=== PATIENT | female | born 1995 | race Caucasian/White ===

== ENCOUNTER 2021-07-06 01:07 | Inpatient (IN) ==
[2021-07-06] MEDS ORDERED: ceFAZolin 1000MG 1,000 MG/7.5 ML SYR IV PRN (01:40)
[2021-07-06] MEDS ORDERED: OXYTOCIN 30 UNITS/500 ML BAG IV PRN ×3 (01:40→14:20)
[2021-07-06] MEDS ORDERED: ceFAZolin 2000MG 2,000 MG/15 ML SYR IV STA (01:56)
[2021-07-06] MEDS: LACTATED RINGER'S 1,000 ML IV PRN ×3 (02:05→10:38)
[2021-07-06] MEDS ORDERED: SODIUM CHLORIDE 0.9% INJ 10 ML VIAL ONE (02:15)
[2021-07-06] MEDS ORDERED: ePHEDrine sulfate 50 MG/ML AMP ONE (02:15)
[2021-07-06] MEDS ORDERED: fentaNYL citrate 100 MCG/2 ML VIAL ONE (02:16)
[2021-07-06] MEDS ORDERED: fentaNYL 2MCG/ML ROPIVACAINE 1.25MG/ML 100 ML BAG EPI ONE (02:16)
[2021-07-06] MEDS ORDERED: BUPIVACAINE 0.25% 30 ML VIAL ONE (02:16)
[2021-07-06 02:28] LABS: Hematocrit (blood only) 35.9 % (37-47); Hemoglobin 12.1 g/dL (12.0-16.0); Mean Corpuscular Hemoglobin 27.8 pg (25-34); Mean Corpuscular Hgb Conc 33.7 g/dL (32-36); Mean Corpuscular Volume 82.3 fL (80-100); Mean Platelet Volume 11.9 fL (7.4-10.4); Platelet Count 205 K/uL (130-400); RDW Coefficient of Variation 14.8 % (11.5-14.5); RDW Standard Deviation 44.3 fL (36.4-46.3); Red Blood Count 4.36 M/uL (4.2-5.4); White Blood Count 8.97 K/uL (4.8-10.8)
--- NOTE | 2021-07-06 03:01 | Anesthesiology Consultation ---
Date of Service July 06, 2021 Assessment & Plan (1) Encounter for pre-operative examination: Chart Review Chart Review: Acceptable Risk for Surgery and Patient NOT seen in Pre Admission Testing Consults Requested none ASA ASA2 Proposed Anesthesia Anesthesia Type: Labor Epidural Risk / Benefits Reviewed With: PT / POA / Parent / Guardian, Accepts Plan and Informed Consent Obtained History Height/Weight Height: 5 ft 3 in Weight: 97.976 kg Allergies Allergy/AdvReac Type Severity Reaction Status Date / Time Penicillins Allergy Unknown childhood Verified 07/06/21 01:22 allergy diphenhydramine AdvReac Vomiting Verified 07/06/21 01:22 [From Benadryl] Medications Active Medications Generic Name Dose Route Start Last Admin Trade Name Freq PRN Reason Stop Dose Admin Lactated Ringer's 1,000 mls @ 125 mls/hr 07/06/21 01:40 07/06/21 02:05 Lr IV 07/08/21 01:39 999 mls/hr .Q8H PRN Administration L&D Protocol Protocol NPO Time Last Intake of Fluids: 02:56 Date Last Intake of Solids: 07/06/21 Time Last Intake of Solids: 02:56 Past Medical History Medical History Lyme arthritis of wrist Spontaneous vaginal delivery [facility] 08/18/16 Exercise / Class Metabolic Activity III < 4 Walking/Shop/Light housework Past Surgical History Surgical History H/O knee surgery 09/2020 Past Anesthesia History No Hx of Anesthesia Complications History of PONV No Hx of PONV Social History Smoking Status: Never smoker Hx Alcohol Use: No Hx Substance Use: No Review of Systems Negative for chest pain or shortness of breath. Patient denies history of abnormal bleeding or bleeding disorder. Patient denies active use of anticoagulants other than low dose aspirin. Patient denies numbness, tingling or weakness in lower extremities. Physical Exam Vital Signs Last Vital Signs Temp 36.7 C 07/06/21 01:42 Pulse 85 07/06/21 02:51 Resp 20 07/06/21 01:42 BP 122/72 07/06/21 01:27 Pulse Ox 100 07/06/21 02:51 Constitutional not obese (gravid) ENMT Mouth: no TMJ abnormality and oral opening not small Thyromental Distance: > or= 3.5 Finger Breadths Mallampati Class: II Neck normal visual inspection; neck extension not limited Respiratory normal respiratory effort Cardiovascular Rate/Rhythm: regular rate and regular rhythm Neurologic moves all extremities Psychiatric Orientation: alert and oriented x 3 Testing Laboratory Results 07/06/21 02:03
[2021-07-06] MEDS ORDERED: NALBUPHINE HCL INJ 10 MG/ML AMP IV PRN (04:28)
[2021-07-06] MEDS ORDERED: fentaNYL 2MCG/ML ROPIVACAINE 1.25MG/ML 100 ML BAG EPI PRN (04:28)
[2021-07-06] MEDS ORDERED: NALOXONE HCL 0.4 MG/1 ML VIAL/CARP IV PRN (04:28)
[2021-07-06] MEDS ORDERED: NALOXONE HCL 1 MG in SODIUM CHLORIDE 0.9% 1000ML 1,000 ML IV PRN (04:28)
[2021-07-06] MEDS ORDERED: ePHEDrine sulfate 50 MG/ML AMP IV PRN (04:28)
[2021-07-06] MEDS ORDERED: ONDANSETRON INJ 2 MG/ML 2 ML VIAL IV PRN (04:28)
--- NOTE | 2021-07-06 06:23 | Progress Note ---
Date of Service July 06, 2021 Assessment & Plan Admission and Anticipated Discharge Date Admission Date: July 06, 2021 Subjective Pt doing well FHR; CAT1 Ctx; 1-3 SROM; Midnight on 07/05/21- Clear VE by nurse Results & Data ([facility]) Vital Signs (Past 12 Hours) Vital Signs Temp Pulse Resp BP Pulse Ox 07/06/21 06:18 61 100 07/06/21 06:13 69 99 07/06/21 06:08 74 99 07/06/21 06:05 73 101/64 07/06/21 06:03 80 100 07/06/21 05:58 76 99 07/06/21 05:53 77 99 07/06/21 05:50 62 108/53 L 07/06/21 05:48 63 97 07/06/21 05:43 60 97 07/06/21 05:38 60 97 07/06/21 05:34 36.7 C 76 96/55 L 07/06/21 05:33 64 97 07/06/21 05:30 18 07/06/21 05:28 61 98 07/06/21 05:23 57 L 99 07/06/21 05:19 63 102/57 L 07/06/21 05:18 62 100 07/06/21 05:13 66 100 07/06/21 05:08 73 99 07/06/21 05:04 82 98/55 L 07/06/21 05:03 72 98 07/06/21 04:58 65 99 07/06/21 04:53 67 99 07/06/21 04:50 59 L 107/55 L 07/06/21 04:48 77 99 07/06/21 04:43 59 L 100 07/06/21 04:38 63 100 07/06/21 04:34 75 101/59 L 07/06/21 04:33 68 100 07/06/21 04:30 18 07/06/21 04:28 59 L 99 07/06/21 04:23 59 L 100 07/06/21 04:20 59 L 108/57 L 07/06/21 04:18 67 100 07/06/21 04:13 62 100 07/06/21 04:08 79 100 07/06/21 04:04 80 109/60 07/06/21 04:03 69 100 07/06/21 04:00 82 109/62 07/06/21 03:58 93 H 100 07/06/21 03:55 72 106/62 07/06/21 03:53 83 100 07/06/21 03:50 67 107/62 07/06/21 03:48 75 100 07/06/21 03:45 70 104/59 L 07/06/21 03:43 36.6 C 67 18 102/59 L 100 07/06/21 03:41 72 107/58 L 07/06/21 03:39 79 115/63 07/06/21 03:38 79 100 07/06/21 03:36 79 117/59 L 07/06/21 03:33 96 H 94/47 L 100 07/06/21 03:29 83 109/67 07/06/21 03:28 79 99 07/06/21 03:25 71 115/73 07/06/21 03:23 80 99 07/06/21 03:21 94 H 100 07/06/21 03:16 95 H 100 07/06/21 03:11 106 H 100 07/06/21 03:06 91 H 100 07/06/21 03:05 79 130/73 07/06/21 03:01 86 97 07/06/21 02:56 81 100 07/06/21 02:51 85 100 07/06/21 01:42 36.7 C 20 07/06/21 01:27 71 122/72
[2021-07-06] MEDS ORDERED: LACTATED RINGER'S 250 ML IV ONE (10:17)
--- NOTE | 2021-07-06 14:13 | Delivery Summary ---
Vaginal Delivery Summary Date of Service July 06, 2021 Vaginal Delivery Summary live female GLENNY over intact perineum with delayed cord clamping and Apgars and weight pending. Cord blood obtained followed by spontaneous delivery of intact placenta. No tears. EBL 100 ml. Final sponge and instrument count are correct. Mom and baby stable.
[2021-07-06] MEDS ORDERED: HYDROCORTISONE ACETATE 25 MG SUPP PR PRN (14:20)
[2021-07-06] MEDS ORDERED: SUPERCREAM 0.870% 15 GM JAR EXT PRN (14:20)
[2021-07-06] MEDS ORDERED: BENZOCAINE 20% AER SPR 82.5 GM CAN EXT PRN (14:20)
[2021-07-06] MEDS ORDERED: DIPHTHERIA/TETANUS/PERTUSSIS 0.5 ML SYR/VIAL IM ONE (14:20)
[2021-07-06] MEDS ORDERED: bisacodyL 10 MG SUPP PR PRN (14:20)
[2021-07-06] MEDS ORDERED: ACETAMINOPHEN 325 MG TAB PO PRN (14:20)
[2021-07-06] MEDS: IBUPROFEN 600 MG TAB PO PRN ×2 (18:11→21:36)
[2021-07-06] MEDS: DOCUSATE SODIUM 100 MG CAP PO SCH (20:52)
[2021-07-07 07:04] LABS: Hematocrit (blood only) 31.6 % (37-47); Hemoglobin 10.3 g/dL (12.0-16.0); Mean Corpuscular Hemoglobin 27.2 pg (25-34); Mean Corpuscular Hgb Conc 32.6 g/dL (32-36); Mean Corpuscular Volume 83.6 fL (80-100); Mean Platelet Volume 11.2 fL (7.4-10.4); Platelet Count 161 K/uL (130-400); RDW Coefficient of Variation 14.9 % (11.5-14.5); RDW Standard Deviation 45.8 fL (36.4-46.3); Red Blood Count 3.78 M/uL (4.2-5.4); White Blood Count 9.25 K/uL (4.8-10.8)
[2021-07-07] MEDS: IBUPROFEN 600 MG TAB PO PRN (07:10)
--- NOTE | 2021-07-07 07:58 | Obstetrical Progress Note ---
Date of Service July 07, 2021 Assessment & Plan Admission and Anticipated Discharge Date Admission Date: July 06, 2021 Subjective Patient is seen and examined. She feels well, no complaints. Desires d/c today Ambulating without dizziness Voiding without difficulty Tolerating regular diet with out N&V Bleeding is minimal No fever/ chills/ CP/ SOB/ N&V/ Leg pain Breast feeding without problems Vital Signs Temp Pulse Resp BP 07/07/21 03:35 36.6 C 60 16 103/71 07/06/21 23:10 37 C 60 18 100/68 Lab Results 07/06/21 07/06/21 07/06/21 Range/Units 01:37 01:37 02:03 WBC 8.97 (4.8-10.8) K/uL RBC 4.36 (4.2-5.4) M/uL Hgb 12.1 (12.0-16.0) g/dL Hct 35.9 L (37-47) % MCV 82.3 (80-100) fL MCH 27.8 (25-34) pg MCHC 33.7 (32-36) g/dL RDW Std Deviation 44.3 (36.4-46.3) fL RDW Coeff of Victorino 14.8 H (11.5-14.5) % Plt Count 205 (130-400) K/uL MPV 11.9 H (7.4-10.4) fL POC Glucose (70-99) mg/dl COVID-19 Eval Order Covid19 [facility] SARS-CoV-2, RNA, NAAT NEGATIVE (NEGATIVE) 07/06/21 07/07/21 Range/Units 04:02 06:27 WBC 9.25 (4.8-10.8) K/uL RBC 3.78 L (4.2-5.4) M/uL Hgb 10.3 L (12.0-16.0) g/dL Hct 31.6 L (37-47) % MCV 83.6 (80-100) fL MCH 27.2 (25-34) pg MCHC 32.6 (32-36) g/dL RDW Std Deviation 45.8 (36.4-46.3) fL RDW Coeff of Victorino 14.9 H (11.5-14.5) % Plt Count 161 (130-400) K/uL MPV 11.2 H (7.4-10.4) fL POC Glucose 96 (70-99) mg/dl COVID-19 Eval Order SARS-CoV-2, RNA, NAAT (NEGATIVE) PE: General: Alert, orientedx3, NAD Abd: soft, NT, fundus firm, below Umbilicus Perineum intact, Lochia rubra minimal Ext; NT, no edema AP: 25 yo s/p , ppd# 1 VSS Afebrile doing well Continue routine care All questions were answered Discussed when to call D/C home in the afternoon Results & Data ([facility]) Vital Signs (Past 12 Hours) Vital Signs Temp Pulse Resp BP 07/07/21 03:35 36.6 C 60 16 103/71 07/06/21 23:10 37 C 60 18 100/68
[2021-07-07] MEDS ORDERED: FERROUS SULFATE 325 MG TAB PO SCH (08:00)
[2021-07-07] MEDS ORDERED: PRENATAL VITAMIN 1 TAB PO SCH (08:00)
[2021-07-07] MEDS: DOCUSATE SODIUM 100 MG CAP PO SCH (08:33)
[2021-07-07] MEDS ORDERED: bisacodyL 5 MG TABEC PO SCH (20:00)
== END 2021-07-07 15:30 | disposition home or self-care (01) | DRG 807 ==
LOC: OPB 01:07 → 4S1 01:08 → 4S2 16:06